=== PATIENT | male | born 1935 | race Caucasian/White ===

== ENCOUNTER 2019-08-28 06:03 | Day surgery (SDC) | payer MEDICARE, OTHER ==
[2019-08-28] MEDS ORDERED: Lactated Ringers 1,000 ML IV SCH (06:30)
[2019-08-28] MEDS ORDERED: DIPRIVAN 200 MG/20 ML IV ONE (07:28)
[2019-08-28 08:26] VITALS: PULSE 51
[2019-08-28 09:03] VITALS: BP 145/78; O2SAT 98
--- NOTE | 2019-08-28 09:08 | OP ---
SURGERY DATE/TIME: 08/28/2019 0725 PREOPERATIVE DIAGNOSIS: History of colon polyps. POSTOPERATIVE DIAGNOSIS: Normal colon. PROCEDURE: Colonoscopy. SURGEON: Dr. Cardona. ANESTHESIA: MAC. Medications given by anesthesia department. HISTORY: The patient is an 83 year-old white male who presents now for surveillance examination having had previous polyps removed. The patient was reappraised of the risks of the procedure including the risk of perforation, phlebitis, untoward reaction to medication, bleeding and missed lesions. The patient verbalized his understanding and desired to have the procedure performed. DESCRIPTION OF PROCEDURE: The patient was given the medications by the anesthesia department. He had continuous pulse oximetry, ECG monitoring, intermittent blood pressure monitoring and tidal CO2 monitoring during the examination. He was placed in the left lateral decubitus position. A digital rectal examination was performed and revealed normal anal sphincter tone and no masses. The flexible Olympus pediatric colonoscope was used to intubate the rectum. A view of the colon was developed sequentially to the cecum. Upon insertion and withdrawal, including a retroflex view in the rectum, no mucosal lesions were encountered. The scope was removed from the patient who tolerated the procedure well and was sent back to OP recovery in good condition. The prep was noted to be fair.
== END 2019-08-28 09:30 | disposition home or self-care (01) ==
LOC: SDC 06:03
PROVIDERS: ATTEND Family Medicine
DX: Z12.11 Encounter for screening for malignant neoplasm of colon (principal); Z86.010 Personal history of colon polyps
CPT/HCPCS: 99100; J2704

== ENCOUNTER 2020-05-09 18:04 | Emergency (ER) | payer MEDICARE, OTHER ==
--- NOTE | 2020-05-09 18:11 | ERPHSYRPT ---
- History of Present Illness Time Seen by Provider: 05/09/20 18:10 Source: patient Exam Limitations: no limitations Physician History: Is an 84-year-old male who was working on his lawnmower yesterday when he had a sudden pain in his left eye. Patient states that he can see well without his glasses. However, when he puts his glasses on his left eye feel the vision seems higher compared to the right side. He is never had this before associated with this was a sharp pain in his head on the left side. Patient took an aspirin. The pain is better but the vision out of his left eye with his glasses on has persisted but slightly improved. Patient's brother had an eye ailment that the sourcing internship were working on. Patient's brother was a diabetic and had a history of stroke. This patient is concerned that he might have had a TIA or stroke yesterday. Patient denies chest pain, he denies shortness of breath Location: left eye Severity: mild Apparent Injury: no Associated Symptoms: pain Visual Assistive Devices: Glasses Chemical Exposure: No Trauma: No Welding Arc/Tanning Bed Exposure: No Allergies/Adverse Reactions: Iodinated Contrast Media Allergy (Unknown, Verified 05/09/20 18:22) ibuprofen Adverse Reaction (Intermediate, Verified 05/09/20 18:22) GI BLEEDING Home Medications: Pregabalin [Lyrica 75 mg Cap] 75 mg PO TID 08/25/19 [History] Tamsulosin HCl 0.4 mg [Flomax 0.4 MG] 0.4 mg PO DAILY 08/25/19 [History] Hx Tetanus, Diphtheria Vaccination/Date Given: Yes Hx Influenza Vaccination/Date Given: No Hx Pneumococcal Vaccination/Date Given: No Travel Risk - International Travel Have you traveled outside of the country in past 3 weeks: No - Coronavirus Screening Are you exhibiting any of the following symptoms?: No Close contact with a COVID-19 positive Pt in past 14-21 Days: No - Review of Systems Constitutional: No Symptoms Eyes: No Symptoms, Eye Pain (Left), Vision Changes (With his glasses on the left eye feel the vision is higher than the right I feel the vision) Ears, Nose, & Throat: No Symptoms Respiratory: No Symptoms Cardiac: No Symptoms Abdominal/Gastrointestinal: No Symptoms Genitourinary Symptoms: No Symptoms Musculoskeletal: No Symptoms Skin: No Symptoms Neurological: No Symptoms Psychological: No Symptoms Endocrine: No Symptoms Hematologic/Lymphatic: No Symptoms Immunological/Allergic: No Symptoms All Other Systems: Reviewed and Negative - Past Medical History Pertinent Past Medical History: Yes Neurological History: No Pertinent History ENT History: No Pertinent History Cardiac History: No Pertinent History Respiratory History: Sleep Apnea Endocrine Medical History: No Pertinent History Musculoskeletal History: Arthritis, Fractures, Other GI Medical History: Ulcer, Other History: No Pertinent History Psycho-Social History: Anxiety Male Reproductive Disorders: Prostate Problems Other Medical History: Several pinched nerves,kidney stones,skin cancer to face,. Chronic back pain. 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 - Past Surgical History Past Surgical History: Yes Neuro Surgical History: No Pertinent History Cardiac: No Pertinent History Respiratory: No Pertinent History Gastrointestinal: No Pertinent History Genitourinary: No Pertinent History Musculoskeletal: No Pertinent History Male Surgical History: No Pertinent History Other Surgical History: heel spurs,kidney stones removed,. sutured blood vessel in colon in 1981 - Social History Smoking Status: Former smoker Exposure to second hand smoke: No Drug Use: none Patient Lives Alone: Yes - Nursing Vital Signs Nursing Vital Signs: Initial Vital Signs Temperature 96.4 F 05/09/20 18:11 Pulse Rate 59 L 05/09/20 18:11 Respiratory Rate 15 05/09/20 18:11 Blood Pressure 179/84 05/09/20 18:11 O2 Sat by Pulse Oximetry 97 05/09/20 18:11 Pain Scale Pain Intensity 0 - Physical Exam General Appearance: no apparent distress, alert Eye Exam: bilateral eye: normal inspection, PERRL, EOMI Ears, Nose, Throat Exam: normal ENT inspection, moist mucous membranes Neck Exam: normal inspection, non-tender, supple, full range of motion Respiratory Exam: normal breath sounds, lungs clear, airway intact, No chest tenderness, No respiratory distress Cardiovascular Exam: regular rate/rhythm, normal heart sounds, normal peripheral pulses Gastrointestinal Exam: No tenderness Extremity Exam: normal inspection, normal range of motion, pelvis stable Neurologic: alert, oriented x 3, cooperative, crutching contractor II-XII nml as tested, normal mood/affect, nml cerebellar function, nml station & gait, sensation nml, No motor deficits, No sensory deficit, No disoriented, No confusion, No motor weakness, No facial droop Skin Exam: normal color, warm, dry Lymphatic: No adenopathy SpO2 Interpretation: normal O2 Delivery: Room Air - Course Nursing assessment & vital signs reviewed: Yes Ordered Tests: Active Orders 24 hr Category Date Time Status HEAD WITHOUT CONTRAST [CT] Stat Exams 05/09/20 18:48 Taken - Progress Progress: improved Progress Note: 05/09/20 19:48 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 No evidence of TIAs or acute infarction. Patient symptoms have improved. Patient states his vision is normalized with wearing his glasses. Counseled pt/family regarding: diagnosis, need for follow-up, rad results - Departure Departure Disposition: Home Clinical Impression: Left eye pain, Visual changes Condition: Stable Critical Care Time: No Referrals: SHELIA GUALLPA [Primary Care Provider] - Additional Instructions: Take your medication as prescribed. Follow-up with an sourcing internship tomorrow. We will provide you with names of ophthalmologists and their contact information.
[2020-05-09 19:20] VITALS: BP 159/76; PULSE 54; O2SAT 95
--- NOTE | 2020-05-10 08:40 | XRAY ---
Indication: Vision changes. Left eye pain. Multiple contiguous axial images obtained through the head without contrast. Comparison: December 22, 2011. There is again age-appropriate global atrophy and mild periventricular degenerative micro-ischemia bilaterally. No acute intracranial hemorrhage, abnormal extra-axial fluid collection, or mass effect. Fourth ventricle is midline without hydrocephalus. Bony calvarium intact. Visualized paranasal sinuses and mastoid air cells are clear. Orbits are bilaterally symmetric. Impression: Continued nonacute senile brain.
== END 2020-05-09 20:02 | disposition home or self-care (01) ==
LOC: ED 18:04
DX: H57.12 Ocular pain, left eye (principal); H53.9 Unspecified visual disturbance; F41.9 Anxiety disorder, unspecified
CPT/HCPCS: 70450; 99283

== ENCOUNTER 2020-08-02 08:04 | Day surgery (SDC) | payer MEDICARE, OTHER ==
[~2020-08-02 08:04] MED LIST: Ak-Dilate OPHTHALMIC*** 1.065 ML, Cyclogyl 1% OPHTH SOL 5 ML 1.065 ML, GATIFLOXACIN 0.5... OP ONE; BETADINE 5% OPHTHALMIC 30 ML OP ONE; DIPRIVAN 200 MG/20 ML IV ONE; Ketamine HCl 50 MG/ML ONE; Lactated Ringers 1,000 ML IV SCH; NON-FORMULARY ITEM IJ ONE; TETRACAINE 0.5% STERI-UNIT SOL OP ONE; cefUROXime sodium 0.005 GM in Sodium Chloride Flush 30 ML*** 0.5 ML IJ SCH
[2020-08-02] MEDS ORDERED: Zofran 4 MG/2 ML VIAL IV PRN (09:00)
[2020-08-02] MEDS ORDERED: Lactated Ringers 1,000 ML IV ONE (09:13)
[2020-08-02] MEDS: ACETAZOLAMIDE 250 MG TABLET PO ONE ×2 (09:36→11:30)
[2020-08-02] MEDS ORDERED: Epinephrine Preservative Free 1 MG/ML INTRAOP ONE (10:00)
[2020-08-02] MEDS ORDERED: LIDOCAINE HCL 1% 50 MG/5 ML VL PF IJ ONE (10:00)
[2020-08-02 11:52] VITALS: O2SAT 94
[2020-08-02 12:03] VITALS: BP 145/79; PULSE 57
--- NOTE | 2020-08-03 08:13 | OP ---
DATE/TIME OF OPERATION: 08/02/2020 1048 TIME DICTATED: 1803 PREOPERATIVE DIAGNOSIS: Senile cataract of left eye. POSTOPERATIVE DIAGNOSIS: Senile cataract of left eye. SURGEON: Vane Barnett MD PATIENT FLOW COORDINATOR: None. OPERATION: Cataract extraction of left eye with an intraocular lens implant. STANDARD __X___ COMPLEX ANESTHESIA: MAC. ___X__ Monitored anesthesia care in combination with topical and intra-cameral anesthesia (because of the established specific risk of reflux, arrhythmias, or an anxiety attack associated with ocular manipulation as well as difficulty of the liquor stores and agencies supervisor to manage such potentially catastrophic events while simultaneously attempting to complete the surgical procedure, it was deemed necessary for the patient's safety to have an anesthesiologist or a nurse aquatic life laborer present during the procedure whenever possible. The anesthesiologist or the nurse aquatic life laborer was utilized to monitor and regulate the intravenous sedation of the patient, so the patient was cooperative, relaxed, and comfortable). Topical anesthesia using Tetracaine eye drops together with intra cameral anesthesia using Lidocaine 1% MPF. The nurse was utilized to monitor the patient. ANESTHESIA PROVIDER: Will Jones CRNA. COMPLICATIONS: None. BLOOD LOSS: None. INDICATIONS: The patient is undergoing cataract surgery in the hopes of eliminating the visual complaints and difficulty. PROCEDURE: After arriving at the facility's outpatient surgery area, an IV was started; the patient was given 5 mg of p.o. Versed. (If an anesthesia provider was not monitoring the patient) The patient was then given topical anesthetic Tetracaine eye drops. A cotton pellet was soaked into a solution of a combination of Zymaxid 0.5%, Cruzito-Synephrine 2.5% and Ocufen (other drops might have been substituted referenced in the patient's record). The pellet was inserted by the RN into the lower conjunctival cul-de-sac with a sterile forceps and left for 20 minutes. The pellet was then removed by the RN with a sterile forceps before taking the patient to the operating room. The preoperative area nurse identified the patient and marked the correct eye to be operated on. I identified the correct eye to be operated on and marked it appropriately in the outpatient surgery area. The patient was then taken into the operating room. Tetracaine eye drops were installed again in the correct eye. The eyelids and the lashes and the lid margins were scrubbed with Betadine solution. One drop of the diluted Betadine solution was placed in the conjunctival cul-de-sac for 45 seconds and then was irrigated. A drop of Tetracaine Gel was placed in the conjunctival cul-de-sac. The patient's forehead was taped to secure it during the procedure. The patient was monitored. The patient was then draped in the usual way for this procedure. An eye speculum was used to separate the eyelids. The eye was then fixated and a temporal 2.5 mm incision was made in the clear cornea temporally at the limbus. Through the incision, 0.25 cc of 1% non-preserved lidocaine was injected into the anterior chamber for intracameral anesthesia. The anterior chamber was then filled with viscoelastic. The pupil was small. I felt that it would be safer to mechanically dilate the pupil. A Malyugin ring was used at this point which dilated the pupil. That was removed at the end of the procedure prior to aspiration of the viscoelastic from the anterior chamber and posterior to the intraocular lens implant. The cataract had a great amount of cortical changes. That rendered seeing the anterior capsule difficult for a safe performance of an anterior capsulotomy. I injected an air bubble into the anterior chamber. I then injected 1 ML of vision blue solution into the anterior chamber. The vision blue solution was irrigated from the anterior chamber after 30 seconds. The anterior capsule was stained which facilitated performing the anterior capsulotomy safely. After that was completed, a cystotome was introduced into the anterior chamber and a round anterior capsulotomy was performed. The capsule was removed by a forceps. Hydrodissection was next carried utilizing a 25-gauge cannula and balanced salt solution to delineate the cortical material from the capsule and the nucleus from the cortical material. The nucleus was rotated freely into the capsular bag with no difficulty. The phaco tip of the [facility] Phacoemulsifier was introduced into the anterior chamber and two grooves were made into the nucleus 90 degrees apart. Using two spatulas resulted into the nucleus being fractured into four quadrants. The phaco tip was then used to remove each quadrant of the nucleus. Viscoelastic was used during this process to protect the corneal endothelium. Once the entire nucleus was removed, the phaco tip then was removed and the irrigation tip was introduced into the eye and the cortex was removed. The posterior capsule was polished. It was noticed that there was a tear into the posterior capsule with few vitreous strands into the pupil plan. An anterior vitrectomy was performed. A 19.50 diopter, [id number], posterior chamber lens implant, was inspected and found to be grossly normal. The implant was inserted into the implant injector cartridge; Viscoelastic again was introduced into the anterior chamber, which filled the capsular bag. The implant injector's cartridge tip was placed at the limbal wound and the posterior chamber implant was released into the capsular bag and rotated appropriately. The implant was found to be into the capsular bag and it was centered. ___X__ 0.2 ml of Tri-Moxi was introduced via 27 gauge cannula into the vitreous cavity through the ciliary processes. Viscoelastic was aspirated from the anterior chamber and posterior to the intraocular lens implant from the capsular bag using the irrigating tip. The anterior chamber was irrigated and filled with 5 cc antibiotic solution (500 cc of BSS plus 2 ml of Fortaz 100 mg/ml) ( if patient was not allergic to the medication). The lips of the corneal incision were hydrated using BSS solution. The anterior chamber was checked and found to be water tight. One drop each of antibiotic, steroid and NSAID drops (refer to chart for drops used) were placed in the conjunctival cul-de-sac of the operated eye. Patient tolerated the procedure quite well and left the operating room in satisfactory condition. DISCHARGE SUMMARY: The patient was released in stable condition. The patient and those with the patient were given an instruction sheet as of how to care for the eye after surgery as well as counseling on any abnormal laboratory studies by the postoperative RN. The patient was also given an appointment card for follow-up in the office and is to call immediately for any difficulties including but not limited to pain in the eye, decreased vision, discharge from the eye, headache and or fever. DISCHARGE DIAGNOSIS: Pseudophakia of left eye.
== END 2020-08-02 12:11 | disposition home or self-care (01) ==
LOC: SDC 08:04
PROVIDERS: ATTEND Ophthalmology
DX: H25.812 Combined forms of age-related cataract, left eye (principal)
CPT/HCPCS: C1780; J0171; J2001; J2704; A9270-GY

== ENCOUNTER 2020-11-01 08:19 | Day surgery (SDC) | payer MEDICARE, OTHER ==
[~2020-11-01 08:19] MED LIST changes: -DIPRIVAN 200 MG/20 ML IV ONE; -Ketamine HCl 50 MG/ML ONE; +Lactated Ringers 1,000 ML IV ONE
[2020-11-01] MEDS ORDERED: Zofran 4 MG/2 ML VIAL IV PRN (09:00)
[2020-11-01] MEDS ORDERED: ACETAZOLAMIDE 250 MG TABLET PO ONE (09:00)
[2020-11-01] MEDS ORDERED: LIDOCAINE HCL 1% 50 MG/5 ML VL PF IJ ONE (09:00)
[2020-11-01] MEDS ORDERED: Epinephrine Preservative Free 1 MG/ML INTRAOP ONE (09:00)
[2020-11-01] MEDS ORDERED: DIPRIVAN 200 MG/20 ML IV ONE (11:11)
[2020-11-01 12:39] VITALS: BP 144/78; PULSE 64; O2SAT 98
== END 2020-11-01 12:25 | disposition home or self-care (01) ==
LOC: SDC 08:19
PROVIDERS: ATTEND Ophthalmology
DX: H25.811 Combined forms of age-related cataract, right eye (principal); Z79.899 Other long term (current) drug therapy
CPT/HCPCS: 99100; C1780; J0171; J2001; J2704; A9270-GY

== ENCOUNTER 2022-09-03 10:18 | Day surgery (SDC) | payer MEDICARE, OTHER ==
--- NOTE | 2022-09-03 08:15 | HP ---
DATE OF SURGERY: 09/03/2022 HISTORY OF PRESENT ILLNESS: The patient is an 86-year-old gentleman with large right inguinal hernia desires repair. PAST MEDICAL HISTORY: Hernia in the past. History of melanoma in the past. Cataracts in the past. PAST SURGICAL HISTORY: Melanoma surgery on his back in the past. MEDICATIONS: Multivitamins, Lyrica, Proscar, Tylenol Extra-Strength, Flomax. ALLERGIES: IBUPROFEN. IODINATED CONTRAST MEDIA. FAMILY HISTORY: Negative in regards to this problem. SOCIAL HISTORY: Former smoker, occasional alcohol use. REVIEW OF SYSTEMS: Fourteen systems reviewed. No chest pain or palpitations. Other systems negative or noncontributory as above and per preadmission questionnaire. PHYSICAL EXAMINATION: GENERAL: No acute distress. HEENT: Sclerae nonicteric. NECK: No JVD. CHEST: Equal excursion, nonlabored breathing. CVS: Regular rate and rhythm. ABDOMEN: Soft. Large hiatal hernia. EXTREMITIES: No edema. No cyanosis. NEURO: Alert, moving extremities symmetrically. RECTAL: Deferred timed to endoscopy exam. PSYCH: Appropriate mood and affect. SKIN: Dry. IMPRESSION: Large right inguinal hernia. I recommend repair. Given the large size, I felt he would benefit from open repair. Risks and benefits were explained in detail including bleeding or infection, risk of hematoma or seroma formation, risk of aches and pains, numbness or burning lower abdomen, thigh, groin or scrotal area possibly intermediate or chronic in nature, risk of hernia recurrence. General risk of anesthesia, sedation, deep venous thrombosis, pulmonary embolism, pneumonia but not limited to, consent obtained. Will proceed with open repair of large inguinal hernia with mesh as an outpatient.
[~2022-09-03 10:18] MED LIST changes: -Ak-Dilate OPHTHALMIC*** 1.065 ML, Cyclogyl 1% OPHTH SOL 5 ML 1.065 ML, GATIFLOXACIN 0.5... OP ONE; -BETADINE 5% OPHTHALMIC 30 ML OP ONE; +CEFAZOLIN 2 GM-D5W BAG** 2 GM/50 ML ML IV SCH; -Lactated Ringers 1,000 ML IV ONE; -NON-FORMULARY ITEM IJ ONE; -TETRACAINE 0.5% STERI-UNIT SOL OP ONE; -cefUROXime sodium 0.005 GM in Sodium Chloride Flush 30 ML*** 0.5 ML IJ SCH
[2022-09-03] MEDS ORDERED: CEFAZOLIN 2 GM-D5W BAG** 2 GM/50 ML ML IV ONE (10:45)
[2022-09-03] MEDS ORDERED: Lactated Ringers 1,000 ML IV ONE ×2 (10:45→13:47)
[2022-09-03 12:13] LABS: ANION GAP 10.7 MEQ/L (5-15); BLOOD UREA NITROGEN 11 mg/dL (9-20); CHLORIDE 104 mmol/L (98-107); Carbon Dioxide 28 mmol/L (22-30); Creatinine 1 0.81 mg/dL (0.66-1.25); EST GLOMERULAR FILTRATION RATE > 60.0 ML/MIN; Glucose 108 mg/dL (74-106); Potassium 4.1 mmol/L (3.5-5.1); SODIUM 139 mmol/L (137-145)
[2022-09-03] MEDS ORDERED: Sensorcaine 0.25% 10 ML ONE (13:23)
[2022-09-03] MEDS ORDERED: ROBINUL ONE (13:26)
[2022-09-03] MEDS ORDERED: Zofran 4 MG/2 ML VIAL ONE (13:26)
[2022-09-03] MEDS ORDERED: Xylocaine-Mpf 2% 5 Ml Vial ONE (13:26)
[2022-09-03] MEDS ORDERED: Zemuron 100 MG/10 ML ONE (13:26)
[2022-09-03] MEDS ORDERED: BRIDION 200MG/2ML IV ONE (13:26)
[2022-09-03] MEDS ORDERED: DIPRIVAN 200 MG/20 ML IV ONE (13:26)
[2022-09-03] MEDS ORDERED: TORAdol 30 mg Injection ONE (13:26)
[2022-09-03] MEDS ORDERED: Decadron 4 MG INJ ONE (13:26)
[2022-09-03] MEDS ORDERED: SUBLIMAZE 100 MCG/2 ML ONE (13:26)
[2022-09-03] MEDS ORDERED: Ketamine HCl 50 MG/ML ONE (13:27)
[2022-09-03] MEDS ORDERED: Ephedrine Sulfate 50 MG/ML ONE (13:48)
[2022-09-03] MEDS ORDERED: NORCO 5/325 MG PO PRN (16:04)
[2022-09-03 16:34] VITALS: O2SAT 92
[2022-09-03 16:51] VITALS: BP 165/87; PULSE 54
--- NOTE | 2022-09-04 09:07 | OP ---
SURGERY DATE/TIME: 09/03/2022 PREOPERATIVE DIAGNOSIS: Large right inguinal hernia symptomatic. POSTOPERATIVE DIAGNOSIS: Large right inguinal hernia symptomatic. PROCEDURE: Open repair large right inguinal hernia with mesh. SURGEON: Dr. Hossein Alcala. ANESTHESIA: General. ESTIMATED BLOOD LOSS: Minimal. INDICATIONS: As noted above. Risks and benefits explained in detail and not limited to and consent obtained. The site was confirmed in the preoperative holding area. DESCRIPTION OF PROCEDURE AND FINDINGS: The patient is taken to the operating room. General anesthesia induced. Prepped and draped in usual sterile fashion. After official time out and no disagreement with planned procedure, a transverse incision made right inguinal area. Dissection carried down through Mercy fascia through the external oblique split in the direction of its fibers towards the external ring. The cord was gently mobilized off the pubic tubercle with a Rainier drain. Cremasteric fibers carefully . He appeared to have mainly a very large direct component. There did not seems to be any significant indirect at this time. Cremasteric fibers . A large indirect hernia sac carefully isolated. It was opened, from the vasculature, vas and Cremasteric fibers back to the internal ring where it was high ligated with 0 Prolene. It was then transected and passed off. Again, he did not seem to have any large direct component currently. It was felt he would benefit from mesh repair. A regular sized piece of keyhole mesh carefully secured to the fascia around pubic tubercle with 0 Prolene and along Isai's ligament along the shelving portion of the ileum and laterally past the internal ring with 0 Prolene. 0 Prolene used to transfix to the rectus fascia medially and 0 Vicryl used to transfix it to the aponeurosis and internal oblique superiorly avoiding the visible branches of the iliohypogastric nerve. Tails of the mesh attached laterally with 0 Prolene. The new internal ring was felt to be not too tight. Ilioinguinal nerves had been well visualized and protected. Tails of the mesh were lying nice and flat on external oblique laterally. The external oblique closed with 0 Vicryl. Mercy closed with 3-0 Vicryl. Subcu closed with 3-0 Vicryl. Skin closed with 4-0 Vicryl. Steri-Strips and sterile dressings applied. 0.25% Marcaine local had been injected along the skin incision back towards the origin of the internal ring back towards anterior iliac spine. The patient tolerated the procedure well. There were no immediate complications.
== END 2022-09-03 17:08 | disposition home or self-care (01) ==
LOC: SDC 10:18
PROVIDERS: ATTEND Surgery
DX: K40.90 Unilateral inguinal hernia, without obstruction or gangrene, not specified as recurrent (principal); Z85.820 Personal history of malignant melanoma of skin
CPT/HCPCS: 36415; 80048; 93005; J0690; J1100; J1885; J2405; J2704; J3010; A9270-GY